=== PATIENT | male | born 1970 | race Caucasian/White ===

== ENCOUNTER 2024-05-20 22:20 | Emergency (ER) | payer SELFPAY ==
[~2024-05-20] VITALS: Ht 167.6 cm; Wt 70.0 kg
[2024-05-20 22:24] VITALS: O2SAT 99
[2024-05-20 23:01] LABS: BASOPHILS % 0.4 % (0.0-2.0); EOSINOPHILS % 2.7 % (0.0-5.0); HEMATOCRIT. 41.4 % (42.0-52.0); HEMOGLOBIN. 14.2 g/dL (14.0-18.0); LYMPHOCYTES % 29.8 % (20.0-50.0); MEAN CORPUSCULAR HEMOGLOBIN 33.9 pg (28.0-32.0); MEAN CORPUSCULAR HGB CONC 34.4 g/dL (31.0-37.0); MEAN CORPUSCULAR VOLUME 98.7 fL (80.0-94.0); MEAN PLATELET VOLUME 6.8 fl (7.4-10.4); MONOCYTES % 10.7 % (2.0-8.0); NEUTROPHILS % 56.4 % (40.0-76.0); PLATELET 396 x1000/uL (130-400); RED CELL DISTRIBUTION WIDTH 13.5 % (11.6-14.6); WHITE BLOOD COUNT 8.7 x1000/uL (4.5-11.0)
[2024-05-20 23:09] LABS: CHLORIDE 104 mEq/L (98-107); POTASSIUM 3.4 mEq/L (3.5-5.1); SODIUM 140 mEq/L (136-145)
[2024-05-20 23:10] LABS: CARBON DIOXIDE 27 mEq/L (21-32)
[2024-05-20 23:11] LABS: CALCIUM 8.8 mg/dL (8.7-10.4)
[2024-05-20 23:15] LABS: CREATININE 0.9 mg/dL (0.6-1.3); GLUCOSE 137 mg/dL (70-105); UREA NITROGEN BLOOD 13 mg/dL (9-23)
[2024-05-20 23:16] LABS: ETHANOL BLOOD 20 mg/dL (<10)
[2024-05-20 23:17] LABS: ACETAMINOPHEN < 2 ug/mL (10-30)
[2024-05-21] MEDS ORDERED: NALO4SPR BOTHNSTRLS (02:48)
[2024-05-21 05:53] VITALS: BP 104/61; PULSE 64; RESP 18; TEMP 36.9; O2SAT 96
== END 2024-05-21 06:16 | disposition home or self-care (01) ==
LOC: EDBD 22:20 → ER 22:20
DX: R06.89 Other abnormalities of breathing (principal); T50.905A Adverse effect of unspecified drugs, medicaments and biological substances, initial encounter; R07.9 Chest pain, unspecified; R41.82 Altered mental status, unspecified; Z79.899 Other long term (current) drug therapy; Z98.890 Other specified postprocedural states; Y92.89 Other specified places as the place of occurrence of the external cause
CPT/HCPCS: 36415; 71045; 80048; 80307; 80320; 80329; 85025; 93005; 99285; G0480